=== PATIENT | female | born 1935 | race Asian ===

== ENCOUNTER 2021-09-29 20:50 | Emergency (ER) | payer MEDICARE, OTHER ==
[~2021-09-29] VITALS: Ht 154.9 cm; Wt 63.5 kg
[2021-09-29] MEDS ORDERED: METFORMIN HCL1000 MG PO (21:11)
[2021-09-29] MEDS ORDERED: CALTRATE 600 +1 EAC3 PO (21:12)
[2021-09-29] MEDS ORDERED: METOPROLOL SUCC25 MG PO (21:12)
[2021-09-29] MEDS ORDERED: BAYER CHEWABLE81 MG PO (21:13)
[2021-09-29] MEDS ORDERED: PAXIL20 MG PO (21:14)
[2021-09-29] MEDS ORDERED: PERCOCET 5-3251 EACH PO (23:50)
== END 2021-09-30 00:26 | disposition home or self-care (01) ==
LOC: ED 20:50
DX: S42.211A Unspecified displaced fracture of surgical neck of right humerus, initial encounter for closed fracture (principal); S42.411A Displaced simple supracondylar fracture without intercondylar fracture of right humerus, initial encounter for closed fracture; E11.9 Type 2 diabetes mellitus without complications; Z85.51 Personal history of malignant neoplasm of bladder; Z79.899 Other long term (current) drug therapy; Z88.6 Allergy status to analgesic agent; Z88.5 Allergy status to narcotic agent; Z88.8 Allergy status to other drugs, medicaments and biological substances; Z79.82 Long term (current) use of aspirin; Z79.84 Long term (current) use of oral hypoglycemic drugs; W18.30XA Fall on same level, unspecified, initial encounter
CPT/HCPCS: 29105; 70450; 73030; 73080; 99284-25; A9270; J2270